=== PATIENT | female | born 1990 | race American Indian/Alaskan Native ===

== ENCOUNTER 2021-01-26 16:50 | Inpatient (IN) | payer SELFPAY ==
--- NOTE | 2021-01-26 19:24 | Emergency Department Report ---
ED General Adult HPI - General Chief complaint: Abdominal Pain Stated complaint: DIAHRREA Time Seen by Provider: 01/26/21 19:19 Source: patient Mode of arrival: Ambulatory Limitations: No Limitations - History of Present Illness Initial comments: 30-year-old female patient presents to the emergency department with complaints of diarrhea for 5 days. No known sick contacts. No current steroid or antibiotic use. No recent travel. Patient has been taking Pepto-Bismol at home with limited relief. Patient has experienced approximately 9 episodes of no nbloody diarrhea in the last 12 hours. No known history of inflammatory bowel disease. No prior abdominal surgeries. Denies fever, chills, vomiting, melena, rectal bleeding, urinary symptoms. Denies all other complaints at this time. - Related Data Allergies Allergy/AdvReac Type Severity Reaction Status Date / Time No Known Allergies Allergy Unverified 01/26/21 17:00 ED Review of Systems ROS: Stated complaint: DIAHRREA Other details as noted in HPI Other: GENERAL: Negative for fever, chills, weight change, anorexia, fatigue. ENT: Negative for ear pain, difficulty hearing, sore throat, nasal congestion, epistaxis. CARDIOVASCULAR: Negative for chest pain, palpitations, lower extremity swelling. PULMONARY: Negative for cough, dyspnea, wheezing, orthopnea, cyanosis. GASTROINTESTINAL: Positive for diarrhea. MUSCULOSKELETAL: Negative for joint pain, joint swelling, myalgias, back pain, neck pain. NEUROLOGICAL: Negative for headache, seizure, syncope, paresthesias, weakness. INTEGUMENTARY: Negative for erythema, rash, diaphoresis, laceration, ecchymosis. HEMATOLOGICAL: Negative for hemoptysis, hematemesis, hematochezia, hematuria. PSYCHIATRIC: Negative for hallucinations, suicidal ideation, homicidal ideation, anxiety, depression. ED Past Medical Hx - Past Medical History Previous Medical History?: No - Surgical History Past Surgical History?: No - Social History Smoking Status: Current Every Day Smoker Substance Use Type: Marijuana ED Physical Exam - General Limitations: No Limitations - Other Other exam information: General: Awake and alert. No acute distress. Head: Atraumatic, normocephalic. Eyes: EOMI. Pupils are equal and round. Normal sclera and conjunctiva. ENT: Oral mucosa is moist. Normal pharyngeal exam. Neck: Supple. No lymphadenopathy. Pulmonary: No respiratory distress. Clear to auscultation bilaterally. Cardiac: Regular rate and rhythm. Pulses are palpable and equal bilaterally. No lower extremity cyanosis or edema. Skin: Warm and dry. No rashes. Abdomen: Soft, non-protuberant. Left lower quadrant tenderness with voluntary guarding, no rebound. Bowel sounds are normal. No organomegaly or masses noted. Back: Normal alignment. No CVA tenderness. Extremities: Symmetrical. Full range of motion intact. Neurological: Alert and oriented, appropriately interactive, no focal deficits. Psych: Cooperative. Appropriate mood and affect. Speech is evenly metered. Thoughts are logically construed. ED Course Vital Signs 01/26/21 17:01 Temperature 98.5 F Pulse Rate 90 Respiratory 18 Rate Blood Pressure 132/88 O2 Sat by Pulse 99 Oximetry ED Medical Decision Making - Lab Data Result diagrams: 01/26/21 19:27 01/26/21 19:27 - Radiology Data [facility] [address] [place] [address] Cat Scan Report Signed Patient: SHABBIR JOHNSON MR#: [id number] : 1990 Acct:[id number] Age/Sex: 30 / F ADM Date: 01/26/21 Loc: ED Attending Dr: Ordering Physician: TETE LANGSTON Date of Service: 01/26/21 Procedure(s): CT abdomen pelvis w con Accession Number(s): [id number] cc: TETE LANGSTON CT ABDOMEN AND PELVIS WITH CONTRAST INDICATION / CLINICAL INFORMATION: Lower abdominal pain, diarrhea, (+) guarding. TECHNIQUE: Axial CT images were obtained through the abdomen and pelvis after 100 cc of Omnipaque [address] scans at this location are performed using CT dose reduction for ALARA by means of automated exposure control. COMPARISON: None available. FINDINGS: LOWER CHEST: No significant abnormality. AORTA / ARTERIES: No significant abnormality. IVC / VEINS: No significant abnormality. LYMPH NODES: No significant adenopathy. COLON: There is mild fatty infiltration of the colonic wall. APPENDIX: The appendix is enlarged, measuring up to 1.0 cm. There is also appendiceal wall enhancement. STOMACH / SMALL BOWEL: No significant abnormality. PERITONEUM: No free fluid. No free air. No fluid collection. LIVER: No significant abnormality. GALLBLADDER: No significant abnormality. BILE DUCTS: No significant abnormality. PANCREAS: No significant abnormality. SPLEEN: No significant abnormality. ADRENALS: No significant abnormality. RIGHT KIDNEY / URETER: No significant abnormality. LEFT KIDNEY / URETER: No significant abnormality. URINARY BLADDER: No significant abnormality. REPRODUCTIVE ORGANS: No significant abnormality. SKELETAL SYSTEM: No significant abnormality. ADDITIONAL FINDINGS: None. IMPRESSION: 1. Acute uncomplicated appendicitis. 2. Mild fatty infiltration of the colonic wall which can be seen with inflammatory bowel disease. Signer Name: Donald Garduno DO Signed: 01/26/2021 10:03 PM Workstation Name: [id number] Transcribed By: DONG Dictated By: DONALD GARDUNO DO Electronically Authenticated By: DONALD GARDUNO DO Signed Date/Time: 01/26/212202 DD/ 57 TD/TT: - Medical Decision Making Differential diagnosis including but not limited to: appendicitis, ovarian cyst/torsion, pelvic inflammatory disease, pyelonephritis, nephrolithiasis, dehydration, electrolyte abnormality, viral illness, related complication, C. difficile On reevaluation, patient is stable and symptoms have improved. Pain is controlled. Labs show hypokalemia and minimally elevated lipase. White blood cell count is normal. test is negative. Urinalysis consistent with UTI and candiduria. Given PO Diflucan and potassium supplement. Urine culture is pending. CT of the abdomen/pelvis obtained due to significant tenderness on physical examination. Imaging shows enlarged appendix measuring up to 1 cm with appendiceal wall enhancement. Patient made NPO and given IV Zosyn. Case discussed with Dr. Wahl, general surgeon, who agrees to evaluate patient in the morning on hospital admission. Case discussed with hospitalist, who agrees to admit. Patient expressed understanding and is agreeable to plan of care. Critical care attestation.: If time is entered above; I have spent that time in minutes in the direct care of this critically ill patient, excluding procedure time. ED Disposition Clinical Impression: Acute appendicitis Qualifiers: Acute appendicitis type: unspecified acute appendicitis type Qualified Code(s): K35.80 - Unspecified acute appendicitis Disposition: ADMITTED INPATIENT Is pt being admited?: Yes Does the pt Need Aspirin: No Condition: Serious Instructions: Abdominal Pain (ED) Time of Disposition: 22:51
[2021-01-26 19:45] LABS: Bacteria,Urine 1+ /HPF (Negative); Bilirubin,Urine NEG (Negative); Blood,Urine SM (Negative); Color,Urine Amber (Yellow); Hyaline Casts,Urine 3 /LPF; Mucus,Urine 3+ /HPF; Urobilinogen,Urine < 2.0 mg/dL (<2.0)
[2021-01-26 19:46] LABS: Basophils # (Auto) 0.1 K/mm3 (0.0-0.1); Basophils % (Auto) 0.6 % (0.0-1.8); Eosinophils # (Auto) 0.1 K/mm3 (0.0-0.4); Eosinophils % (Auto) 0.9 % (0.0-4.3); Hematocrit 41.3 % (30.3-42.9); Lymphocytes # (Auto) 2.1 K/mm3 (1.2-5.4); Lymphocytes % (Auto) 24.6 % (13.4-35.0); Mean Corpuscular HGB Conc 34 % (30-34); Mean Corpuscular Volume 88 fl (79-97); Monocytes # (Auto) 0.7 K/mm3 (0.0-0.8); Monocytes % (Auto) 8.6 % (0.0-7.3); Platelet Count 294 K/mm3 (140-440); Red Blood Count 4.69 M/mm3 (3.65-5.03); Red Cell Distribution Width 14.4 % (13.2-15.2)
[2021-01-26 20:07] LABS: Alanine Aminotransferase 12 units/L (7-56); Albumin 4.2 g/dL (3.9-5); BUN/Creatinine Ratio 13; Blood Urea Nitrogen 10 mg/dL (7-17); Calcium 9.5 mg/dL (8.4-10.2); Hemolysis Index 6
[2021-01-26] MEDS ORDERED: FLUCONAZOLE 100 MG TAB PO ONE (20:19)
[2021-01-26] MEDS ORDERED: POTASSIUM CHLORIDE ER 20 MEQ TAB PO ONE (20:19)
[2021-01-26] MEDS ORDERED: SODIUM CHLORIDE 0.9% 1000 ML 1,000 ML IV ONE (20:19)
[2021-01-26] MEDS ORDERED: PROCHLORPERAZINE EDISYLATE 10 MG/2 ML VIAL IV ONE (20:36)
[2021-01-26] MEDS ORDERED: diphenhydrAMINE 50 MG/ML VIAL IV ONE (20:36)
[2021-01-26] MEDS ORDERED: HYOSCYAMINE SUBL 0.125 MG TAB SL ONE (20:36)
[2021-01-26] MEDS ORDERED: FLUCONAZOLE 200 MG TAB PO ONE (21:00)
--- NOTE | 2021-01-26 22:08 | Cat Scan Report ---
CT ABDOMEN AND PELVIS WITH CONTRAST INDICATION / CLINICAL INFORMATION: Lower abdominal pain, diarrhea, (+) guarding. TECHNIQUE: Axial CT images were obtained through the abdomen and pelvis after 100 cc of Omnipaque [address] scans at this location are performed using CT dose reduction for ALARA by means of automated exposure control. COMPARISON: None available. FINDINGS: LOWER CHEST: No significant abnormality. AORTA / ARTERIES: No significant abnormality. IVC / VEINS: No significant abnormality. LYMPH NODES: No significant adenopathy. COLON: There is mild fatty infiltration of the colonic wall. APPENDIX: The appendix is enlarged, measuring up to 1.0 cm. There is also appendiceal wall enhancemen t. STOMACH / SMALL BOWEL: No significant abnormality. PERITONEUM: No free fluid. No free air. No fluid collection. LIVER: No significant abnormality. GALLBLADDER: No significant abnormality. BILE DUCTS: No significant abnormality. PANCREAS: No significant abnormality. SPLEEN: No significant abnormality. ADRENALS: No significant abnormality. RIGHT KIDNEY / URETER: No significant abnormality. LEFT KIDNEY / URETER: No significant abnormality. URINARY BLADDER: No significant abnormality. REPRODUCTIVE ORGANS: No significant abnormality. SKELETAL SYSTEM: No significant abnormality. ADDITIONAL FINDINGS: None. IMPRESSION: 1. Acute uncomplicated appendicitis. 2. Mild fatty infiltration of the colonic wall which can be seen with inflammatory bowel disease. Signer Name: Donald Strong DO Signed: 01/26/2021 10:03 PM Workstation Name: [id number]
[2021-01-26] MEDS ORDERED: PIPERACIL/TAZOBACTA 4.5/NS 100 4.5 GM/100 ML VIAL IV ONE (22:13)
[2021-01-26] MEDS ORDERED: MORPHINE 4 MG/1 ML INJ IV ONE (22:24)
[2021-01-26] MEDS ORDERED: ACETAMINOPHEN 325 MG TAB PO PRN (23:06)
[2021-01-26] MEDS ORDERED: ONDANSETRON 4 MG/2 ML INJ IV PRN (23:06)
[2021-01-26] MEDS ORDERED: MORPHINE 2 MG/1 ML INJ IV PRN (23:06)
--- NOTE | 2021-01-26 23:14 | History and Physical Report ---
History of Present Illness Date of examination: 01/26/21 Date of admission: 01/26/2021 Chief complaint: Diarrhea History of present illness: 60-year-old female with no past medical problems presenting to the emergency room complaining of diarrhea which has been ongoing for about 5 days. She she has also had some associated abdominal discomfort. Abdominal discomfort is more in the lower abdomen. She denies any nausea vomiting, no fever or chills, no chest pain or shortness of breath, no headache or dizziness, no diaphoresis. Patient denies any bloody stool, denies any hematuria or dysuria. Patient denies any sick contacts and no recent travel. Denies any contact with anyone with COVID-19. Patient denies any recent use of antibiotics. Work-up so far in the emergency room reveals mild UTI. CT of the abdomen and pelvis reveals acute uncomplicated appendicitis. Mild fatty infiltration of the colonic wall which can be seen with inflammatory bowel disease. Consult has been placed to the general surgeon Dr. Wahl by the ER physician for evaluation. Patient has been kept n.p.o. and placed on empiric IV antibiotics as recommended by the surgeon. Past History Past Medical History: No medical history Past Surgical History: No surgical history Social history: smoking (Current daily smoker), other (Uses Marijuana) Family history: other (Grand Mother had Breast Ca.) Medications and Allergies Allergies Allergy/AdvReac Type Severity Reaction Status Date / Time No Known Allergies Allergy Unverified 01/26/21 17:00 Active Meds: Active Medications Acetaminophen (Acetaminophen 325 Mg Tab) 650 mg PO Q4H PRN PRN Reason: Pain MILD(1-3)/Fever >100.5/GALLARDO Sodium Chloride (Nacl 0.9% 1000 Ml) 1,000 mls @ 125 mls/hr IV DIRECT KULDIP Morphine Sulfate (Morphine 2 Mg/1 Ml Inj) 2 mg IV Q4H PRN PRN Reason: Pain, Moderate (4-6) Morphine Sulfate (Morphine 4 Mg/1 Ml Inj) 4 mg IV Q4H PRN PRN Reason: Pain , Severe (7-10) Ondansetron HCl (Ondansetron 4 Mg/2 Ml Inj) 4 mg IV Q8H PRN PRN Reason: Nausea And Vomiting Sodium Chloride (Sodium Chloride 0.9% 10 Ml Flush Syringe) 10 ml IV BID KULDIP Sodium Chloride (Sodium Chloride 0.9% 10 Ml Flush Syringe) 10 ml IV PRN PRN PRN Reason: LINE FLUSH Review of Systems Constitutional: no fever, no chills Ears, nose, mouth and throat: no nasal congestion, no sore throat Cardiovascular: no chest pain, no palpitations Respiratory: no cough, no shortness of breath Gastrointestinal: abdominal pain, diarrhea, no nausea, no vomiting Genitourinary Female: no flank pain, no dysuria, no hematuria Musculoskeletal: no neck pain, no low back pain Integumentary: no rash, no pruritis Neurological: no headaches, no confusion Psychiatric: no anxiety, no depression Endocrine: no polyphagia, no polydipsia, no polyuria, no nocturia Exam - Constitutional Vitals: Temp Pulse Resp BP Pulse Ox 98.5 F 90 18 132/88 99 01/26/21 17:01 01/26/21 17:01 01/26/21 17:01 01/26/21 17:01 01/26/21 17:01 General appearance: Present: no acute distress, well-nourished - EENT Eyes: Present: PERRL, EOM intact. Absent: scleral icterus ENT: hearing intact, clear oral mucosa, dentition normal - Neck Neck: Present: supple, normal ROM. Absent: carotid bruits - Respiratory Respiratory effort: normal Respiratory: bilateral: CTA - Cardiovascular Rhythm: regular Heart Sounds: Present: S1 & S2. Absent: gallop, systolic murmur, diastolic murmur, rub, click - Extremities Extremities: no ischemia, pulses intact, pulses symmetrical, No edema, Full ROM Peripheral Pulses: within normal limits - Abdominal General gastrointestinal: Present: soft, tender (Mild suprapubic and right lower quadrant tenderness, no guarding and no rebound tenderness.), non-distended, normal bowel sounds. Absent: mass - Integumentary Integumentary: Present: clear, warm, dry, normal turgor. Absent: rash - Musculoskeletal Musculoskeletal: strength equal bilaterally - Psychiatric Psychiatric: appropriate mood/affect, intact judgment & insight, memory intact, cooperative - Neurologic Neurologic: CNII-XII intact, no focal deficits, moves all extremities Results - Labs CBC & Chem 7: 01/26/21 19:27 01/26/21 19:27 Labs: Abnormal lab results 01/26/21 01/26/21 01/26/21 Range/Units 19:27 19:27 Unknown [place] % (Auto) 8.6 H (0.0-7.3) % Sodium 134 L (137-145) mmol/L Potassium 3.0 L (3.6-5.0) mmol/L Chloride 97.0 L (98-107) mmol/L Glucose 111 H (65-100) mg/dL Total Protein 8.5 H (6.3-8.2) g/dL Lipase 88 H (13-60) units/L Urine WBC (Auto) 8.0 H (0.0-6.0) /HPF Assessment and Plan - Patient Problems (1) Acute appendicitis Current Visit: Yes Status: Acute Qualifiers: Acute appendicitis type: unspecified acute appendicitis type Qualified Code(s): K35.80 - Unspecified acute appendicitis Plan to address problem: Patient kept n.p.o. and we will place on IV fluid. Consult placed to general surgeon for evaluation and recommendation. Meanwhile patient also placed on empiric IV antibiotics. (2) UTI (urinary tract infection) Current Visit: Yes Status: Acute Plan to address problem: Patient has been placed on empiric IV antibiotics. Will await urine culture results. (3) Hypokalemia Current Visit: Yes Status: Acute Plan to address problem: Potassium will be repleted. We will monitor chemistry. (4) DVT prophylaxis Current Visit: Yes Status: Acute Plan to address problem: Patient placed on sequential compression device. (5) Full code status Current Visit: Yes Status: Acute Plan to address problem: Patient is full code.
[2021-01-26] MEDS ORDERED: SODIUM CHLORIDE 0.9% 1000 ML 1,000 ML IV SCH (23:15)
[2021-01-27] MEDS: MORPHINE 4 MG/1 ML INJ IV PRN ×3 (01:37→18:32)
[2021-01-27] MEDS: PIPERACIL/TAZOBACTA 4.5/NS 100 4.5 GM/100 ML VIAL IV SCH ×3 (06:13→22:26)
[2021-01-27 06:36] LABS: Basophils % (Auto) 0.3 % (0.0-1.8); Eosinophils % (Auto) 0.3 % (0.0-4.3); Hematocrit 34.1 % (30.3-42.9); Hemoglobin 11.5 gm/dl (10.1-14.3); Lymphocytes # (Auto) 1.5 K/mm3 (1.2-5.4); Mean Corpuscular HGB Conc 34 % (30-34); Mean Corpuscular Volume 88 fl (79-97); Monocytes # (Auto) 0.8 K/mm3 (0.0-0.8); Monocytes % (Auto) 9.2 % (0.0-7.3); Platelet Count 223 K/mm3 (140-440); Red Blood Count 3.86 M/mm3 (3.65-5.03); Red Cell Distribution Width 14.5 % (13.2-15.2)
[2021-01-27 06:42] LABS: INR 1.02 (0.87-1.13)
[2021-01-27 06:54] LABS: BUN/Creatinine Ratio 10; Blood Urea Nitrogen 7 mg/dL (7-17); Calcium 8.1 mg/dL (8.4-10.2); Hemolysis Index 2
--- NOTE | 2021-01-27 10:37 | Anesthesia Consultation ---
Anesthesia Consult and Med Hx Date of service: 01/27/21 - Airway Anesthetic Teeth Evaluation: Good ROM Head & Neck: Adequate Mental/Hyoid Distance: Adequate Mallampati Class: Class II Intubation Access Assessment: Probably Good - Pre-Operative Health Status ASA Pre-Surgery Classification: ASA2 Proposed Anesthetic Plan: General - Pulmonary Hx Smoking: Yes (black and mild) - Other Systems Hx Substance Use: Yes (marijuana)
--- NOTE | 2021-01-27 10:38 | Anesthesia Day of Surgery ---
Anesthesia Day of Surgery - Day of Surgery Patient Examined: Yes Patient H&P Reviewed: Yes Patient is NPO: Yes
--- NOTE | 2021-01-27 10:40 | Consultation ---
History of Present Illness Consult date: 01/27/21 Reason for consult: abdominal pain - History of present illness History of present illness: 30-year-old female presented to the emergency room with a chief complaint of 5 days of progressively worsening diarrhea. Patient says that she has been having santiago and infra-umbilical abdominal pain that occasionally radiates to her right lower quadrant. Patient had a CT scan which shows some enhancement and dilation of her appendix with some adjacent colonic fat inflammatory changes. Patient denies ever feeling this before or sick contacts. Patient has no significant previous medical or surgical history. Past History Past Medical History: No medical history Past Surgical History: No surgical history Social history: smoking (Current daily smoker), other (Uses Marijuana) Family history: other (Grand Mother had Breast Ca.) Medications and Allergies Allergies Allergy/AdvReac Type Severity Reaction Status Date / Time No Known Allergies Allergy Unverified 01/26/21 17:00 Active Meds: Active Medications Acetaminophen (Acetaminophen 325 Mg Tab) 650 mg PO Q4H PRN PRN Reason: Pain MILD(1-3)/Fever >100.5/GALLARDO Sodium Chloride (Nacl 0.9% 1000 Ml) 1,000 mls @ 125 mls/hr IV DIRECT KULDIP Last Admin: 01/27/21 01:38 Dose: 125 mls/hr Documented by: Piperacillin Sod/Tazobactam Sod (Zosyn/Ns 4.5gm/100ml) 4.5 gm in 100 mls @ 200 mls/hr IV Q8H KULDIP; Protocol Last Admin: 01/27/21 06:13 Dose: 200 mls/hr Documented by: Morphine Sulfate (Morphine 2 Mg/1 Ml Inj) 2 mg IV Q4H PRN PRN Reason: Pain, Moderate (4-6) Morphine Sulfate (Morphine 4 Mg/1 Ml Inj) 4 mg IV Q4H PRN PRN Reason: Pain , Severe (7-10) Last Admin: 01/27/21 06:13 Dose: 4 mg Documented by: Ondansetron HCl (Ondansetron 4 Mg/2 Ml Inj) 4 mg IV Q8H PRN PRN Reason: Nausea And Vomiting Sodium Chloride (Sodium Chloride 0.9% 10 Ml Flush Syringe) 10 ml IV BID KULDIP Sodium Chloride (Sodium Chloride 0.9% 10 Ml Flush Syringe) 10 ml IV PRN PRN PRN Reason: LINE FLUSH Review of Systems All systems: negative - Constitutional poor appetite - Cardiovascular no chest pain - Gastrointestinal abdominal pain, diarrhea - Genitourinary Genitourinary: no dysuria Exam Vital Signs Temp Pulse Resp BP Pulse Ox 98.5 F 90 18 132/88 99 01/26/21 17:01 01/26/21 17:01 01/26/21 17:01 01/26/21 17:01 01/26/21 17:01 - General physical appearance Positive: well developed, no distress, moderate pain - ENT Positive: normal nares, normal mucosa, no hearing loss - Respiratory Positive: normal expansion, normal respiratory effort - Cardiovascular Heart Sounds: Present: S1 & S2 - Extremities Extremities: no ischemia - Abdomen Abdomen: Present: soft. Absent: distended (Tender to palpation in the infraumbilical and right lower quadrant) Results - Labs 01/27/21 05:36 01/27/21 05:36 Abnormal lab results 01/26/21 01/26/21 01/26/21 Range/Units 19:27 19:27 Unknown [place] % (Auto) 8.6 H (0.0-7.3) % Seg Neutrophils % (40.0-70.0) % Sodium 134 L (137-145) mmol/L Potassium 3.0 L (3.6-5.0) mmol/L Chloride 97.0 L (98-107) mmol/L Glucose 111 H (65-100) mg/dL Calcium (8.4-10.2) mg/dL Total Protein 8.5 H (6.3-8.2) g/dL Lipase 88 H (13-60) units/L Urine WBC (Auto) 8.0 H (0.0-6.0) /HPF 01/27/21 01/27/21 Range/Units 05:36 05:36 [place] % (Auto) 9.2 H (0.0-7.3) % Seg Neutrophils % 73.2 H (40.0-70.0) % Sodium (137-145) mmol/L Potassium (3.6-5.0) mmol/L Chloride (98-107) mmol/L Glucose 106 H (65-100) mg/dL Calcium 8.1 L (8.4-10.2) mg/dL Total Protein (6.3-8.2) g/dL Lipase (13-60) units/L Urine WBC (Auto) (0.0-6.0) /HPF Diabetes panel 01/26/21 01/27/21 Range/Units 19:27 05:36 Sodium 134 L 139 (137-145) mmol/L Potassium 3.0 L 3.6 (3.6-5.0) mmol/L Chloride 97.0 L 105.8 (98-107) mmol/L Carbon Dioxide 22 22 (22-30) mmol/L BUN 10 7 (7-17) mg/dL Creatinine 0.8 0.7 (0.6-1.2) mg/dL Glucose 111 H 106 H (65-100) mg/dL Calcium 9.5 8.1 L (8.4-10.2) mg/dL AST 17 (5-40) units/L ALT 12 (7-56) units/L Alkaline Phosphatase 112 (35-129) units/L Total Protein 8.5 H (6.3-8.2) g/dL Albumin 4.2 (3.9-5) g/dL Calcium panel 01/26/21 01/27/21 Range/Units 19:27 05:36 Calcium 9.5 8.1 L (8.4-10.2) mg/dL Albumin 4.2 (3.9-5) g/dL Pituitary panel 01/26/21 01/27/21 Range/Units 19:27 05:36 Sodium 134 L 139 (137-145) mmol/L Potassium 3.0 L 3.6 (3.6-5.0) mmol/L Chloride 97.0 L 105.8 (98-107) mmol/L Carbon Dioxide 22 22 (22-30) mmol/L BUN 10 7 (7-17) mg/dL Creatinine 0.8 0.7 (0.6-1.2) mg/dL Glucose 111 H 106 H (65-100) mg/dL Calcium 9.5 8.1 L (8.4-10.2) mg/dL Adrenal panel 01/26/21 01/27/21 Range/Units 19:27 05:36 Sodium 134 L 139 (137-145) mmol/L Potassium 3.0 L 3.6 (3.6-5.0) mmol/L Chloride 97.0 L 105.8 (98-107) mmol/L Carbon Dioxide 22 22 (22-30) mmol/L BUN 10 7 (7-17) mg/dL Creatinine 0.8 0.7 (0.6-1.2) mg/dL Glucose 111 H 106 H (65-100) mg/dL Calcium 9.5 8.1 L (8.4-10.2) mg/dL Total Bilirubin 0.20 (0.1-1.2) mg/dL AST 17 (5-40) units/L ALT 12 (7-56) units/L Alkaline Phosphatase 112 (35-129) units/L Total Protein 8.5 H (6.3-8.2) g/dL Albumin 4.2 (3.9-5) g/dL - Imaging CT scan - abdomen: report reviewed, image reviewed CT scan - pelvis: report reviewed, image reviewed Assessment and Plan 30-year-old female with diarrhea and lower abdominal pain, with CT scan findings suggestive of acute appendicitis. Patient is afebrile and stable. Discussed with patient the options of continue to observe with antibiotics versus appendectomy. Patient says that she would like to proceed with appendectomy. The risk and benefits were explained she expressed understanding and the consent was signed. Plan to take patient to the OR today for laparoscopic appendectomy.
[2021-01-27 11:08] LABS: HCG Qualitative,Urine Negative (Negative)
[2021-01-27] MEDS ORDERED: LIDOCAINE (1%) 10 MG/1 ML VIAL 20 ML MDV ONE (13:35)
[2021-01-27] MEDS ORDERED: BUPIVACAINE/PF (0.5%) 5 MG/1 ML 30 ML VIAL INFILTRATI ONE ×3 (13:35→14:51)
[2021-01-27] MEDS ORDERED: SUCCINYLCHOLINE CHLORIDE 200 MG/10 ML INJ MDV ONE (13:40)
[2021-01-27] MEDS ORDERED: ROCURONIUM 50 MG/5 ML INJ IV ONE (13:40)
[2021-01-27] MEDS ORDERED: fentaNYL 100 MCG/2 ML INJ ONE (13:40)
[2021-01-27] MEDS ORDERED: ONDANSETRON 4 MG/2 ML INJ ONE (13:40)
[2021-01-27] MEDS ORDERED: dexAMETHasone 20 MG/5 ML VIAL ONE (13:40)
[2021-01-27] MEDS ORDERED: propofoL 200 MG/20 ML VIAL IV ONE (13:41)
[2021-01-27] MEDS ORDERED: KETAMINE/STERILE WATER 50 MG/ML SYRINGE ONE (13:44)
[2021-01-27] MEDS ORDERED: MIDAZOLAM 2 MG/2 ML INJ ONE (14:21)
[2021-01-27] MEDS ORDERED: LIDOCAINE (1%) 10 MG/1 ML VIAL 20 ML MDV INFILTRATI ONE ×2 (14:51)
[2021-01-27] MEDS ORDERED: SODIUM CHLORIDE 0.9% IRR 1,500 ML BOTTLE IR ONE ×2 (14:51)
[2021-01-27] MEDS ORDERED: SUGAMMADEX SODIUM 200 MG/2 ML VIAL IV ONE (15:03)
[2021-01-27] MEDS ORDERED: PHENYLEPHRINE/NS 1,000 MCG/10 ML SYRINGE (OR USE) IV ONE (15:12)
[2021-01-27] MEDS ORDERED: KETOROLAC 30 MG/1 ML INJ ONE (15:15)
[2021-01-27] MEDS ORDERED: LIDOCAINE PF 100 MG/5 ML (CARDIAC SYRINGE) IV ONE (15:18)
[2021-01-27] MEDS ORDERED: LACTATED RINGERS 1,000 ML ONE ×2 (15:27)
--- NOTE | 2021-01-27 15:36 | Operative Report ---
Operative Report Operative Report: Date of Service: 01/27/2021 Primary Surgeon: Rima Wahl MD Procedure: Laparoscopic Appendectomy Anesthesia: GETA Pre-Operative Diagnosis: acute appendicitis Post-Operative Diagnosis: Same Indications for Procedure: 30-year-old female presented to the emergency room with 5-day history of worsening diarrhea and suprapubic abdominal pain. CT scan showed a dilated enhance appendix consistent with early appendicitis. Patient signed informed consent expressed understanding the risk and benefits. Description of Procedure(s): The patient was brought to the operating room and underwent general anesthesia after lower extremity SCD were placed. The abdomen was prepped and draped in the standard fashion. IV antibiotics were given and a time out was performed. Using a veress needle via a stab incision in the umbilicus, the abdomen was insuflated to a pressure of 15mmHg. Using optivew technique, a 5mm trocar was placed just superior and to the left of the umbilicus. There was no gross injury noted to any intra-abdominal structures. After which working trocars were placed under direct visualization. A 12 mm trocar was placed in left mid abdomen, and a 5 mm trocar was inserted in the suprapubic area. The patient was placed in slight Trendelenburg position and tilted towards her left side. The cecum was identified and mobilized, as well as the terminal ileum. There was no gross purulent fluid. The appendix was noted to be laying medially. The mesoappendix was transected with the LigaSure. The appendix was then taken at its base with a white load on a laparoscopic stapler. The staple line was inspected and found to be hemostatically sound and secure. The appendix was placed in Endo Catch bag. It was then retrieved via the 12 mm trocar. The fascia was then closed using a 0 Vicryl and a suture passer device. Trocars removed under direct visualiza tion. The insufflation was then terminated. The skin incisions were closed using 4-0 Monocryl sutures. All the wounds dressed with dermabond. The patient tolerated the procedure well, was extubated and taken to the recovery room in satisfactory condition. 50-50 lidocaine Marcaine mixture was used at all incisions. Specimen: appendix Complications: none immediate EBl: minimal Findings: Appendix that showed no signs of perforation, mildly hyperemic
--- NOTE | 2021-01-27 15:47 | Post Anesthesia Evaluation ---
- Post Anesthesia Evaluation Patient Participated: Yes Airway Patent: Yes Stable Respiratory Function: Yes Nausea/Vomiting: No Temp > 96.8F: Yes Pain Manageable: Yes Adequeate Hydration: Yes Anesthesia Complications: No
--- NOTE | 2021-01-27 17:09 | Progress Note ---
Assessment and Plan (1) Acute appendicitis Current Visit: Yes Status: Acute Qualifiers: Acute appendicitis type: unspecified acute appendicitis type Qualified Code(s): K35.80 - Unspecified acute appendicitis Plan to address problem: Patient kept n.p.o. and we will place on IV fluid. Consult placed to general surgeon for evaluation and recommendation -plan for laparoscopic appendectomy today Meanwhile patient also placed on empiric IV antibiotics. (2) UTI (urinary tract infection) Current Visit: Yes Status: Acute Plan to address problem: Patient has been placed on empiric IV antibiotics. Will await urine culture results. (3) Hypokalemia Current Visit: Yes Status: Acute Plan to address problem: Potassium will be repleted. We will monitor chemistry. (4) DVT prophylaxis Current Visit: Yes Status: Acute Plan to address problem: Patient placed on sequential compression device. (5) Full code status Current Visit: Yes Status: Acute Plan to address problem: Patient is full code. Subjective Date of service: 01/27/21 Interval history: Patient seen and examined. Medical records and medication list reviewed. No acute event overnight noted by the RN. Patient denies any chest pain or difficulty breathing. Status post laparoscopic appendectomy today Discussed plan of care at bedside with patient. Objective - Exam Narrative Exam: GENERAL: well-developed and well-nourished -[place] female lying on bed appeared to be in no discomfort. HEENT: Normocephalic. Atraumatic. No conjunctival congestion or icterus. Patient has moist mucous membranes. NECK: Supple. Trachea midline. CHEST/LUNGS: Clear to auscultated bilaterally, breathing nonlabored. No wheezes crackles or rhonchi. HEART/CARDIOVASCULAR: Regular in rate and rhythm. S1 and S2 positive. ABDOMEN: Abdomen is soft, laparoscopic wound intact without any bleeding, bowel sounds positive SKIN: There is no rash. Warm and dry. NEURO: No focal motor deficit. Follows command. MUSCULOSKELETAL: No joint effusion or tenderness. EXTRIMITY: No edema, no cyanosis or clubbing. PSYCH: Cooperative. - Constitutional Vitals: Vital Signs - 12hr 01/27/21 01/27/21 01/27/21 07:35 14:05 15:34 Temperature 98.4 F 98.4 F 97.8 F Pulse Rate 86 84 88 Respiratory 18 18 18 Rate Blood Pressure 118/75 Blood Pressure 132/84 130/87 [Left] O2 Sat by Pulse 100 100 100 Oximetry 01/27/21 01/27/21 01/27/21 15:40 15:45 16:00 Temperature Pulse Rate 97 H 85 101 H Respiratory 16 18 16 Rate Blood Pressure 125/78 118/76 108/75 Blood Pressure [Left] O2 Sat by Pulse 100 99 99 Oximetry 01/27/21 16:15 Temperature Pulse Rate 89 Respiratory 18 Rate Blood Pressure 119/68 Blood Pressure [Left] O2 Sat by Pulse 100 Oximetry - Labs CBC & Chem 7: 01/28/21 04:33 01/27/21 05:36 Labs: Abnormal lab results 01/26/21 01/26/21 01/26/21 Range/Units 19:27 19:27 Unknown [place] % (Auto) 8.6 H (0.0-7.3) % Seg Neutrophils % (40.0-70.0) % Sodium 134 L (137-145) mmol/L Potassium 3.0 L (3.6-5.0) mmol/L Chloride 97.0 L (98-107) mmol/L Glucose 111 H (65-100) mg/dL Calcium (8.4-10.2) mg/dL Total Protein 8.5 H (6.3-8.2) g/dL Lipase 88 H (13-60) units/L Urine WBC (Auto) 8.0 H (0.0-6.0) /HPF 01/27/21 01/27/21 Range/Units 05:36 05:36 [place] % (Auto) 9.2 H (0.0-7.3) % Seg Neutrophils % 73.2 H (40.0-70.0) % Sodium (137-145) mmol/L Potassium (3.6-5.0) mmol/L Chloride (98-107) mmol/L Glucose 106 H (65-100) mg/dL Calcium 8.1 L (8.4-10.2) mg/dL Total Protein (6.3-8.2) g/dL Lipase (13-60) units/L Urine WBC (Auto) (0.0-6.0) /HPF
[2021-01-28] MEDS ORDERED: oxyCODONE /ACETAMINOPHEN 5-325MG TAB PO PRN (00:23)
[2021-01-28 05:47] LABS: Basophils % (Auto) 0.1 % (0.0-1.8); Hematocrit 31.6 % (30.3-42.9); Hemoglobin 10.8 gm/dl (10.1-14.3); Lymphocytes # (Auto) 1.1 K/mm3 (1.2-5.4); Lymphocytes % (Auto) 12.6 % (13.4-35.0); Mean Corpuscular HGB Conc 34 % (30-34); Mean Corpuscular Volume 88 fl (79-97); Monocytes # (Auto) 0.5 K/mm3 (0.0-0.8); Monocytes % (Auto) 5.5 % (0.0-7.3); Platelet Count 243 K/mm3 (140-440); Red Blood Count 3.58 M/mm3 (3.65-5.03); Red Cell Distribution Width 14.6 % (13.2-15.2)
[2021-01-28] MEDS: KETOROLAC 30 MG/1 ML INJ IV SCH ×3 (05:49→05:58)
[2021-01-28] MEDS: PIPERACIL/TAZOBACTA 4.5/NS 100 4.5 GM/100 ML VIAL IV SCH (05:49)
[2021-01-28 12:46] VITALS: BP 110/65
--- NOTE | 2021-01-28 13:45 | Progress Note ---
Assessment and Plan Postop day #1 status post laparoscopic appendectomy for acute appendicitis. Patient afebrile and stable. Patient tolerating diet with pain control. Patient can be discharged from general surgery perspective. Patient's follow-up with me in the office in 2 weeks for follow-up. Subjective Date of service: 01/28/21 Narrative: No acute events overnight. Pt has no complaints, is tolerating soft diet with pain controlled. Objective Vital Signs - 12hr 01/28/21 01/28/21 01/28/21 04:17 07:44 12:00 Temperature 98.2 F 97.3 F L 98.7 F Pulse Rate 68 61 69 Respiratory 18 18 Rate Blood Pressure 113/76 110/65 Blood Pressure 110/68 [Left] O2 Sat by Pulse 99 99 Oximetry - General physical appearance well developed, no pain - Respiratory normal expansion, normal respiratory effort - Abdomen soft, not rebound, not guarding, not rigid, other (incisions c/d/i, appropriately tender to palpation) - Labs 01/28/21 04:33 01/27/21 05:36
--- NOTE | 2021-01-28 16:22 | Discharge Summary ---
Providers - Providers Date of Admission: 01/28/21 00:23 Date of discharge: 01/28/21 Attending physician: TC SIDDIQI 01/26/21 22:19 Consult to Physician [CONS] Stat Comment: Consulting Provider: JON WAHL Physician Instructions: Reason For Exam: appendicitis Primary care physician: MILLING SUPERVISOR Hospitalization Condition: Serious Hospital course: 30-year-old female presented to the emergency room with a chief complaint of 5 days of progressively worsening diarrhea. Patient says that she has been having santiago and infra-umbilical abdominal pain that occasionally radiates to her right lower quadrant. Patient had a CT scan which shows some enhancement and dilation of her appendix with some adjacent colonic fat inflammatory changes. Patient was admitted for further evaluation management, general surgery was consulted. Patient was taken to the OR for laparoscopic appendectomy which was done successfully. Following surgery patient was clinically stable and tolerated the procedure well. She was able to tolerate diet. Today patient was further evaluated by general surgery and cleared for discharge. She will be discharged home in stable condition and she was instructed to follow-up with Dr. Wahl/general surgeon in 2 weeks. Disposition: 01 HOME / SELF CARE / HOMELESS Final Discharge Diagnosis (Prints w/discharge instructions): --Acute appendicitis. --Urinary tract infection. --Hypokalemia Time spent for discharge: 34 minutes Core Measure Documentation - Palliative Care Palliative Care/ Comfort Measures: Not Applicable - Core Measures Any of the following diagnoses?: none Exam - Physical Exam Narrative exam: GENERAL: well-developed and well-nourished -[place] female lying on bed appeared to be in no discomfort. HEENT: Normocephalic. Atraumatic. No conjunctival congestion or icterus. Patient has moist mucous membranes. NECK: Supple. Trachea midline. CHEST/LUNGS: Clear to auscultated bilaterally, breathing nonlabored. No wheezes crackles or rhonchi. HEART/CARDIOVASCULAR: Regular in rate and rhythm. S1 and S2 positive. ABDOMEN: Abdomen is soft, laparoscopic wound intact without any bleeding, bowel sounds positive SKIN: There is no rash. Warm and dry. NEURO: No focal motor deficit. Follows command. MUSCULOSKELETAL: No joint effusion or tenderness. EXTRIMITY: No edema, no cyanosis or clubbing. PSYCH: Cooperative. - Constitutional Vitals: Temp Pulse Resp BP Pulse Ox 98.7 F 69 18 110/65 99 01/28/21 12:00 01/28/21 12:00 01/28/21 12:00 01/28/21 12:00 01/28/21 12:00 Plan Activity: advance as tolerated Weight Bearing Status: Non-Weight Bearing Diet: advance as tolerated Additional Instructions: Follow-up with general surgeon in 2 weeks Follow up with: PRIMARY CARE, [Primary Care Provider] - 3-5 Days JON WAHL MD [Staff Physician] - 7 Days Prescriptions: Ibuprofen [Motrin 600 MG tab] 600 mg PO Q8H PRN #14 tablet PRN Reason: Pain
--- NOTE | 2021-01-30 14:03 | Electrocardiograph Report ---
[facility] Test Date: 2021-01-26 Test Time: 22:32:27 Pat Name: SHABBIR JOHNSON Department: Room: A477 Gender: F Comprehensive Advisor: : [id number] Requested By: TRU MELGOZA Order Number: [id number] Reading MD: Octavia Beck Measurements Intervals [place] Rate: 82 P: -17 MN: 135 QRS: 45 QRSD: 74 T: 25 QT: 379 QTc: 444 Interpretive Statements Sinus rhythm ST elev, probable normal early repol pattern No previous ECG available for comparison Electronically Signed On 01-30-2021 14:02:42 EDT by Octavia Beck
== END 2021-01-28 18:00 | disposition home or self-care (01) | DRG 342 ==
LOC: ED 16:50 → 3A 23:07 → 4A 01-27 07:53 → OBSVTOIN 01-28 00:23
PROVIDERS: ADMIT Internal Medicine Geriatric Medicine; ATTEND Internal Medicine
PROC: 0DTJ4ZZ Resection of Appendix, Percutaneous Endoscopic Approach (ICD-10-PCS; principal; 2021-01-28)
DX: K35.80 Unspecified acute appendicitis (principal); N39.0 Urinary tract infection, site not specified; Z20.822 Contact with and (suspected) exposure to COVID-19; F17.200 Nicotine dependence, unspecified, uncomplicated; E87.6 Hypokalemia
CPT/HCPCS: 36415; 74177; 80048; 80053; 81001; 81025; 83690; 83735; 84702; 85025; 85610; 87086; 88304; 93005; 96365; 96375; 99406; G0378; J0330; J0780; J1100; J1200; J1885; J2001; J2250; J2270; J2370; J2405; J2543; J2704; J3010; J3490; J7030; J7120; Q9967; U0003